=== PATIENT | male | born 1975 | race Caucasian/White ===

== ENCOUNTER 2017-10-22 20:30 | Emergency (ER) | payer SELFPAY ==
[2017-10-22 20:45] VITALS: TEMP 98.1
[2017-10-22] MEDS ORDERED: NS 1,000 ML IV ONE (21:04)
--- NOTE | 2017-10-22 21:10 | EDPHY ---
H & P Time Seen by Provider: 10/22/17 20:53 HPI/ROS: CHIEF COMPLAINT: Right-sided abdominal pain HISTORY OF PRESENT ILLNESS: This 42-year-old man has had a cholecystectomy. He recently flew from [place] on the to visit [place] Merino and his 's parents in [place]. He started having right-sided upper abdominal discomfort about a week ago. It is intermittent and sometimes severe but not associated with eating or drinking. He did have an episode of nausea and vomiting last night which he attributes to being the severity these symptoms. Does not radiate. Not similar to his gallbladder disease. He has felt a little bit of short of breath but attributes that to being at his 's parents house [place] [place]. Presents today with continued symptoms. REVIEW OF SYSTEMS: Eye: no change in vision ENT: no sore throat Cardiac: Right lower chest and upper abdominal pain, no syncope Pulmonary: No hemoptysis Abdomen: HPI Musculoskeletal: no back pain Skin: Has a chronic papular rash which he was told after biopsy is mast cell disease Neuro: no headache Constitutional: no fever : no urinary symptoms A comprehensive 10 point review of systems is otherwise negative aside from elements mentioned in the history of present illness. PAST MEDICAL HISTORY: Cholecystectomy, left forearm fracture surgery, diabetes , hypertension. Mast cell disease. Social history: Recent travel as above, tobacco smoker General Appearance: Alert and conversant, cooperative. Eyes: No scleral icterus. ENT, Mouth: Normal mucous membranes. Respiratory: Normal respiratory effort, breath sounds equal, lungs are clear to auscultation. Cardiovascular: Regular rate and rhythm. Gastrointestinal: Abdomen is soft and non tender. No right upper quadrant tenderness rebound or guarding Neurological: Alert, normally conversant, moves all 4 extremities. Skin: Scattered red spots on his trunk which the patient says is his chronic mast cell disease, unchanged from usual. Musculoskeletal: No peripheral edema. No calf tenderness. Psychiatric: Not agitated. Emergency Department course/MDM: Plan for with IV fluids and labs to include liver function tests lipase and D- dimer. CT scanning. Patient declines pain medication on initial evaluation. 2148: D-dimer less than 0.5, CT abdomen and pelvis ordered with IV contrast. Low pretest probability for pulmonary embolism. 2235: Normal CT abdomen and pelvis per Nusser. Results discussed with the patient at this time. Does not have peritoneal signs. I think symptomatic treatment is appropriate. Patient says he is comfortable discharged will return if he gets worse. 25 mg IV Benadryl, possibility of his mast cell skin disease causing his abdominal symptoms was considered. Smoking Status: Current every day smoker Constitutional: Initial Vital Signs Temperature (C) 36.7 C 10/22/17 20:39 Heart Rate 92 10/22/17 20:39 Respiratory Rate 18 10/22/17 20:39 Blood Pressure 178/86 H 10/22/17 20:39 O2 Sat (%) 93 10/22/17 20:39 O2 Delivery Mode Room Air Allergies/Adverse Reactions: No Known Allergies Allergy (Unverified 10/22/17 20:45) Home Medications: Medication Instructions Recorded Amlodipine Besylate 10/22/17 Metformin HCl 10/22/17 Ramipril 10/22/17 Medical Decision Making - Diagnostics Imaging Results: Imaging Impressions Abdomen CT 10/22/17 21:48 Impression: No evidence for acute intraabdominal or pelvic abnormality. Results called and discussed with Craig Garcia M.D., on October 22, 2017 at 2236. Differential Diagnosis: Differential considered including but not limited to PE, hepatitis, cholangitis , bowel obstruction, pancreatitis. - Data Points Laboratory Results: Laboratory Results 10/22/17 21:09 10/22/17 21:09 10/22/17 10/22/17 10/22/17 21:09 21:09 21:09 WBC 6.66 10^3/uL 10^3/uL (3.80-9.50) RBC 5.00 10^6/uL 10^6/uL (4.40-6.38) Hgb 14.9 g/dL g/dL (13.7-17.5) Hct 43.7 % % (40.0-51.0) MCV 87.4 fL fL (81.5-99.8) MCH 29.8 pg pg (27.9-34.1) MCHC 34.1 g/dL g/dL (32.4-36.7) RDW 13.3 % % (11.5-15.2) Plt Count 201 10^3/uL 10^3/uL (150-400) MPV 10.2 fL fL (8.7-11.7) Neut % (Auto) 56.3 % % (39.3-74.2) Lymph % (Auto) 28.4 % % (15.0-45.0) [place] % (Auto) 11.9 % % (4.5-13.0) Eos % (Auto) 2.3 % % (0.6-7.6) Baso % (Auto) 0.3 % % (0.3-1.7) Nucleat RBC Rel Count 0.0 % % (0.0-0.2) Absolute Neuts (auto) 3.76 10^3/uL 10^3/uL (1.70-6.50) Absolute Lymphs (auto) 1.89 10^3/uL 10^3/uL (1.00-3.00) Absolute Monos (auto) 0.79 10^3/uL 10^3/uL (0.30-0.80) Absolute Eos (auto) 0.15 10^3/uL 10^3/uL (0.03-0.40) Absolute Basos (auto) 0.02 10^3/uL 10^3/uL (0.02-0.10) Absolute Nucleated RBC 0.00 10^3/uL 10^3/uL (0-0.01) Immature Gran % 0.8 % % (0.0-1.1) Immature Gran # 0.05 10^3/uL 10^3/uL (0.00-0.10) D-Dimer 0.31 ug/mLFEU ug/mLFEU (0.00-0.50) Sodium 143 mEq/L mEq/L (134-144) Potassium 3.6 mEq/L mEq/L (3.5-5.2) Chloride 101 mEq/L mEq/L (97-110) Carbon Dioxide 24 mEq/l mEq/l (22-31) Anion Gap 18 mEq/L H mEq/L (8-16) BUN 8 mg/dL mg/dL (7-23) Creatinine 0.7 mg/dL mg/dL (0.7-1.3) Estimated GFR > 60 Glucose 226 mg/dL H mg/dL (70-100) Calcium 8.7 mg/dL mg/dL (8.5-10.4) Total Bilirubin 0.4 mg/dL mg/dL (0.1-1.4) Conjugated Bilirubin 0.2 mg/dL mg/dL (0.0-0.5) Unconjugated Bilirubin 0.2 mg/dL mg/dL (0.0-1.1) AST 20 IU/L IU/L (17-59) ALT 36 IU/L IU/L (21-72) Alkaline Phosphatase 67 IU/L IU/L (38-126) Total Protein 6.8 g/dL g/dL (6.3-8.2) Albumin 4.0 g/dL g/dL (3.5-5.0) Lipase 138 IU/L IU/L (23-300) Medications Given: Discontinued Medications Diphenhydramine HCl (Benadryl Injection) 25 mg IVP EDNOW ONE Stop: 10/22/17 22:43 Last Admin: 10/22/17 22:47 Dose: 25 mg Sodium Chloride (Ns) 1,000 mls @ 0 mls/hr IV EDNOW ONE; Wide Open PRN Reason: Protocol Stop: 10/22/17 21:05 Last Admin: 10/22/17 21:12 Dose: 1,000 mls Departure - Departure Disposition: Home, Routine, Self-Care Clinical Impression: Abdominal pain Qualifiers: Abdominal location: right upper quadrant Qualified Code(s): R10.11 - Right upper quadrant pain Condition: Good Instructions: Acute Abdominal Pain (ED) Referrals: Jacobo Friend MD [Medical Doctor] - As per Instructions (GI followup if still in [place] and not improving.)
[2017-10-22 21:17] LABS: PLATELET COUNT 201 10^3/uL (150-400)
[2017-10-22] MEDS ORDERED: IOPAMIDOL (ISOVUE-300) 100 ML BTL ONE (22:02)
[2017-10-22 22:53] VITALS: BP 159/78; PULSE 84; RESP 16; O2SAT 95
== END 2017-10-22 22:53 | disposition home or self-care (01) ==
DX: R10.11 Right upper quadrant pain (principal); E86.9 Volume depletion, unspecified; E11.9 Type 2 diabetes mellitus without complications; I10 Essential (primary) hypertension; F17.200 Nicotine dependence, unspecified, uncomplicated; Z79.84 Long term (current) use of oral hypoglycemic drugs; Z90.49 Acquired absence of other specified parts of digestive tract
CPT/HCPCS: 96374; J1200; Q9967